=== PATIENT | male | born 1950 | race Caucasian/White ===

== ENCOUNTER 2023-04-03 16:21 | Inpatient (IN) | payer MEDICARE ==
[~2023-04-03] VITALS: Ht 182.8 cm; Wt 108.9 kg
[2023-04-03] MEDS ORDERED: TYLENOL325 M1 PO (18:36)
[2023-04-03] MEDS ORDERED: XANAX0.5 MG PO (18:37)
[2023-04-03] MEDS ORDERED: NORVASC10 MG PO (18:37)
[2023-04-03] MEDS ORDERED: LIPITOR10 MG PO (18:38)
[2023-04-03] MEDS ORDERED: DEPAKOTE ER500 MG PO (18:39)
[2023-04-03] MEDS ORDERED: DULCOLAX10 M1 R (18:39)
[2023-04-03] MEDS ORDERED: LEXAPRO20 MG PO (18:40)
[2023-04-03] MEDS ORDERED: FLEET ENEMA 13133 ML R (18:41)
[2023-04-03] MEDS ORDERED: FISH OIL 500 M1 EACH PO (18:41)
[2023-04-03] MEDS ORDERED: LAMICTAL200 MG PO (18:42)
[2023-04-03] MEDS ORDERED: MILK OF MA400 MG/5 M PO (18:43)
[2023-04-03] MEDS ORDERED: MULTI-VITAMIN1 EACH PO (18:43)
[2023-04-03] MEDS ORDERED: OMEPRAZOLE40 MG PO (18:44)
[2023-04-03] MEDS ORDERED: TRAZODONE100 MG PO (18:45)
[2023-04-03] MEDS ORDERED: OXYBUTYNIN5 MG PO (18:45)
[2023-04-03] MEDS ORDERED: ZYPREXA5 M1 PO (18:46)
[2023-04-03] MEDS ORDERED: AMBIEN5 MG PO (18:46)
[2023-04-04 16:57] VITALS: BP 153/58
[2023-04-04 20:00] VITALS: BP 136/65
[2023-04-05 08:00] VITALS: BP 143/66
[2023-04-05 08:42] LABS: BASO # 0.1 10*3/uL (0.0-0.1); EOS # 0.2 10*3/uL (0.0-0.4); EOS % 2.2 % (1.0-4.0); LYMPH # 2.2 10*3/uL (1.3-4.4); LYMPH % 31.6 % (27.0-41.0); MEAN CELL VOLUME 99.8 fl (80.0-94.0); MEAN CORPUSCULAR HGB 32.2 pg (27.0-31.0); MEAN CORPUSCULAR HGB CONC 32.3 g/dl (33.0-37.0); MEAN PLATELET VOLUME 11.5 fl (9.6-12.3); MONO # 0.6 10*3/uL (0.1-1.0); MONO % 8.4 % (3.0-9.0); NEUT # 3.9 10*3/uL (2.3-7.9); NEUT % 56.4 % (47.0-73.0); PLATELET COUNT AUTOMATED 207 10*3/uL (130-400); RED BLOOD COUNT 4.41 10*6/uL (4.50-5.90); RED CELL DISTRI WIDTH 14.2 % (0-14.5); WHITE BLOOD COUNT 6.9 10*3/uL (4.8-10.8)
[2023-04-05 09:07] LABS: ALKALINE PHOSPHATASE 68 U/L (46-116); BUN 16 mg/dl (9-23); CHLORIDE 108 mmol/L (98-107); CHOLESTEROL 139 mg/dL (<200); LDL CHOLESTEROL 76 mg/dL (9-159); POTASSIUM 4.3 mmol/L (3.4-5.1); SGPT/ALT 16 U/L (5-49); TOTAL PROTEIN 6.8 gm/dL (6.0-8.0); TRIGLYCERIDES 71 mg/dl (<150)
[2023-04-05 09:21] LABS: VITAMIN D, 25-HYDROXY 39.2 ng/mL (30-100)
[2023-04-05 20:00] VITALS: BP 158/83
[2023-04-06 08:32] VITALS: BP 135/78
[2023-04-06 20:00] VITALS: BP 158/64
[2023-04-07 07:34] VITALS: BP 119/66
[2023-04-07 18:59] VITALS: BP 141/94
[2023-04-07 20:00] VITALS: BP 149/84
[2023-04-08 07:38] VITALS: BP 162/70
[2023-04-08 20:00] VITALS: BP 156/82
[2023-04-09 08:45] VITALS: BP 133/73
[2023-04-09 20:00] VITALS: BP 161/86
[2023-04-10 07:44] VITALS: BP 148/72
[2023-04-10 20:00] VITALS: BP 150/68
[2023-04-11 07:59] VITALS: BP 126/73
[2023-04-11 20:00] VITALS: BP 135/6
[2023-04-12 07:30] VITALS: BP 160/74
[2023-04-12 19:15] VITALS: BP 145/78
[2023-04-13 07:34] VITALS: BP 153/67
[2023-04-13] MEDS ORDERED: MIRTAZAPINE15 M2 PO (10:04)
[2023-04-13] MEDS ORDERED: DIVALPROEX SOD500 MG PO (10:04)
[2023-04-13] MEDS ORDERED: RAMELTEON8 MG PO (10:04)
[2023-04-13] MEDS ORDERED: LATU20TA PO (10:04)
[2023-04-13] MEDS ORDERED: LAMOTRIGINE100 MG PO (10:04)
== END 2023-04-13 14:03 | DRG 885 ==
LOC: 3N → EDHOLD 16:21 → 3N 18:09 → EDHOLD 04-04 13:57 → 3N 04-04 13:57
PROVIDERS: ADMIT Psychiatry & Neurology Psychiatry; ATTEND Psychiatry & Neurology Psychiatry
DX: F31.10 Bipolar disorder, current episode manic without psychotic features, unspecified (principal); D53.9 Nutritional anemia, unspecified; E87.8 Other disorders of electrolyte and fluid balance, not elsewhere classified; I10 Essential (primary) hypertension; E78.2 Mixed hyperlipidemia; K59.09 Other constipation; Z88.8 Allergy status to other drugs, medicaments and biological substances; Z88.1 Allergy status to other antibiotic agents; Z88.5 Allergy status to narcotic agent; F17.210 Nicotine dependence, cigarettes, uncomplicated; Z83.3 Family history of diabetes mellitus; Z79.1 Long term (current) use of non-steroidal anti-inflammatories (NSAID); Z79.899 Other long term (current) drug therapy